=== PATIENT | female | born 1960 | race Caucasian/White ===

== ENCOUNTER 2017-05-17 20:06 | Emergency (ER) | payer OTHER ==
[~2017-05-17] VITALS: Ht 175.3 cm; Wt 47.0 kg
[2017-05-17] MEDS ORDERED: LORTAB 10-325 M1 TAB PO (22:47)
[2017-05-17 22:51] VITALS: BP 112/50
== END 2017-05-17 23:00 | disposition left against medical advice (07) | DRG 185 ==
LOC: ED 20:06
DX: S22.41XA Multiple fractures of ribs, right side, initial encounter for closed fracture (principal); F17.210 Nicotine dependence, cigarettes, uncomplicated; Z91.19 Patient's noncompliance with other medical treatment and regimen; R07.1 Chest pain on breathing; W01.198A Fall on same level from slipping, tripping and stumbling with subsequent striking against other object, initial encounter; Y92.009 Unspecified place in unspecified non-institutional (private) residence as the place of occurrence of the external cause

== ENCOUNTER 2017-11-20 02:09 | Emergency (ER) | payer OTHER ==
[~2017-11-20] VITALS: Ht 175.3 cm; Wt 48.0 kg
[~2017-11-20 02:09] MED LIST: LORTAB 10-325 M1 TAB PO
[2017-11-20 03:18] LABS: INFLUENZA A NONE DETECTED (NONE DETECT); INFLUENZA B NONE DETECTED (NONE DETECT)
[2017-11-20] MEDS ORDERED: AMOXICILLIN500 MG PO (04:24)
[2017-11-20 04:36] VITALS: BP 118/65
== END 2017-11-20 04:34 | disposition home or self-care (01) | DRG 153 ==
LOC: ED 02:09
PROVIDERS: Emergency Medicine
DX: J06.9 Acute upper respiratory infection, unspecified (principal); J02.9 Acute pharyngitis, unspecified

== ENCOUNTER 2019-12-31 16:02 | Emergency (ER) | payer OTHER ==
[~2019-12-31 16:02] MED LIST changes: +AMOXICILLIN500 MG PO
[2019-12-31] MEDS ORDERED: KEFLEX500 M1 PO (16:40)
[2019-12-31 17:01] VITALS: BP 109/71
== END 2019-12-31 17:01 | disposition home or self-care (01) ==
LOC: ED 16:02
DX: L03.115 Cellulitis of right lower limb (principal); F17.210 Nicotine dependence, cigarettes, uncomplicated; R53.83 Other fatigue; E55.9 Vitamin D deficiency, unspecified

== ENCOUNTER 2020-10-19 10:53 | Emergency (ER) | payer OTHER ==
[~2020-10-19] VITALS: Ht 175.3 cm; Wt 65.0 kg
[~2020-10-19 10:53] MED LIST changes: +KEFLEX500 M1 PO
[2020-10-19] MEDS ORDERED: PENICILLN VK500 MG PO (12:19)
[2020-10-19] MEDS ORDERED: TRAMADOL HYDROC50 M1 PO (12:19)
[2020-10-19 12:30] VITALS: BP 119/78
== END 2020-10-19 12:30 | disposition home or self-care (01) ==
LOC: ED 10:53
DX: K04.7 Periapical abscess without sinus (principal); K02.9 Dental caries, unspecified; F41.9 Anxiety disorder, unspecified; F17.200 Nicotine dependence, unspecified, uncomplicated

== ENCOUNTER 2022-02-22 16:27 | Emergency (ER) | payer OTHER ==
[~2022-02-22] VITALS: Ht 175.3 cm; Wt 60.0 kg
[~2022-02-22 16:27] MED LIST changes: +PENICILLN VK500 MG PO; +TRAMADOL HYDROC50 M1 PO
[2022-02-22 18:35] VITALS: BP 126/85
[2022-02-22 19:00] VITALS: BP 131/71
[2022-02-22] MEDS ORDERED: VOLTAREN75 MG PO (20:28)
[2022-02-22 21:14] VITALS: BP 114/74
[2022-02-22 21:33] VITALS: BP 114/74
== END 2022-02-22 21:33 | disposition home or self-care (01) ==
LOC: ED 16:27
DX: S90.31XA Contusion of right foot, initial encounter (principal); F41.9 Anxiety disorder, unspecified; F17.200 Nicotine dependence, unspecified, uncomplicated; W20.8XXA Other cause of strike by thrown, projected or falling object, initial encounter; Y93.H2 Activity, gardening and landscaping; Y92.007 Garden or yard of unspecified non-institutional (private) residence as the place of occurrence of the external cause

== ENCOUNTER 2022-07-26 09:14 | Emergency (ER) | payer OTHER ==
[~2022-07-26] VITALS: Ht 175.3 cm; Wt 54.4 kg
[~2022-07-26 09:14] MED LIST changes: +VOLTAREN75 MG PO
[2022-07-26 09:19] VITALS: BP 113/83
[2022-07-26 09:30] VITALS: BP 126/74
[2022-07-26 10:01] VITALS: BP 108/52
[2022-07-26] MEDS ORDERED: PAXLOVID PO (10:13)
[2022-07-26 10:17] VITALS: BP 126/74
== END 2022-07-26 10:28 | disposition home or self-care (01) ==
LOC: ED 09:14
DX: U07.1 COVID-19 (principal); J02.9 Acute pharyngitis, unspecified; F41.9 Anxiety disorder, unspecified; F17.210 Nicotine dependence, cigarettes, uncomplicated